=== PATIENT | female | born 1970 | race Two or more races ===

== ENCOUNTER 2025-07-21 20:08 | Emergency (ER) | payer OTHER ==
[2025-07-21 20:48] VITALS: BP 148/88; PULSE 99; RESP 16; TEMP 97.9; BMI 29.8
[2025-07-21] MEDS ORDERED: predniSONE 20 MG TABLET (UD) ONE (21:05)
[2025-07-21] MEDS: predniSONE 20 MG TABLET (UD) PO ONE (21:13)
[2025-07-21] MEDS: ACYCLOVIR 400 MG TABLET PO ONE (21:34)
== END 2025-07-21 22:23 | disposition home or self-care (01) ==
LOC: FER 20:08
DX: G51.0 Bell's palsy (principal); R51.9 Headache, unspecified
CPT/HCPCS: 70450-TC; 82962; 99284-25